=== PATIENT | male | born 1950 | race Two or more races ===

== ENCOUNTER 2023-03-23 08:14 | Emergency (ER) | payer OTHER ==
[~2023-03-23] VITALS: Ht 175.3 cm; Wt 79.4 kg
[2023-03-23 08:30] VITALS: BP_SYST 136; PULSE 91; RESP 20; TEMP 97; O2SAT 99
[2023-03-23 08:48] LABS: BASOPHILS # (AUTO) 0.1 K/uL (0.0-0.2); BASOPHILS % (AUTO) 0.9 % (0.0-2.0); EOSINOPHILS # (AUTO) 0.3 K/uL (0.0-0.4); EOSINOPHILS % (AUTO) 4.4 % (0.0-4.0); HEMATOCRIT 49.6 % (36-54); HEMOGLOBIN 16.3 g/dL (14.0-18.0); LYMPHOCYTES # (AUTO) 2.2 K/uL (1.0-5.5); MEAN CORPUSCULAR HEMOGLOBIN 28 pg (27-31); MEAN CORPUSCULAR HGB CONC 33 % (32-36); MEAN CORPUSCULAR VOLUME 86 fL (79.0-98.0); MONOCYTES # (AUTO) 0.5 K/uL (0.0-1.0); MONOCYTES % (AUTO) 6.7 % (1.7-9.3); NEUTROPHILS # (AUTO) 4.3 K/uL (1.8-7.7); PLATELET COUNT (AUTO) 246 K/uL (130-430); RED BLOOD CELL COUNT(AUTO) 5.78 MIL/uL (4.2-6.2); WHITE BLOOD COUNT (AUTO) 7.3 K/uL (4.8-10.8)
[2023-03-23 09:06] LABS: ANION GAP 9 (5-15); CALCIUM 8.3 mg/dL (8.4-11.0); CARBON DIOXIDE 28 mmol/L (23-29); CHLORIDE 101 mmol/L (98-107); CREATININE 1.03 mg/dL (0.55-1.30); GLUCOSE 122 mg/dL (74-106); POTASSIUM 4.1 mmol/L (3.5-5.1); SODIUM SERUM 138 mmol/L (136-145); UREA NITROGEN, BLOOD 21 mg/dL (8-21)
[2023-03-23 09:11] LABS: ALANINE AMINOTRANSFERASE 23 U/L (12-78); ASPARTATE AMINOTRANSFERASE 18 U/L (10-37); TOTAL BILIRUBIN 0.6 mg/dL (0.0-1.0); TOTAL PROTEIN, SERUM 8.1 g/dL (6.4-8.3)
[2023-03-23] MEDS ORDERED: KETOROLAC TROMETHAMINE 30 MG VIAL IM ONE (12:30)
[2023-03-23] MEDS ORDERED: lidoderm (12:57)
== END 2023-03-23 14:05 | disposition home or self-care (01) ==
LOC: SED 08:14
DX: S20.211A Contusion of right front wall of thorax, initial encounter (principal); Z79.899 Other long term (current) drug therapy; W19.XXXA Unspecified fall, initial encounter; Y93.89 Activity, other specified; Y92.89 Other specified places as the place of occurrence of the external cause; Y99.8 Other external cause status
CPT/HCPCS: 99285; 71260; 80053; 85025; 36415; 76376; J1885

== ENCOUNTER 2023-06-17 22:01 | Emergency (ER) | payer OTHER ==
[~2023-06-17] VITALS: Ht 175.3 cm; Wt 86.2 kg
[~2023-06-17 22:01] MED LIST: lidoderm
[2023-06-17 22:11] VITALS: BP_SYST 129; PULSE 76; RESP 18; TEMP 96.6; O2SAT 96
[2023-06-17] MEDS ORDERED: NS 1000 ML IV.SOLN IV ONE (22:15)
[2023-06-17 23:33] LABS: EOSINOPHILS # (AUTO) 0.1 K/uL (0.0-0.4); MEAN CORPUSCULAR VOLUME 84 fL (79.0-98.0); NEUTROPHILS # (AUTO) 5.3 K/uL (1.8-7.7)
[2023-06-17 23:40] LABS: BASOPHILS % (AUTO) 0.5 % (0.0-2.0); EOSINOPHILS % (AUTO) 1.6 % (0.0-4.0); HEMATOCRIT 48.9 % (36-54); HEMOGLOBIN 16.7 g/dL (14.0-18.0); LYMPHOCYTES # (AUTO) 1.2 K/uL (1.0-5.5); LYMPHOCYTES % (AUTO) 16.2 % (20.5-51.5); MEAN CORPUSCULAR HEMOGLOBIN 29 pg (27-31); MEAN CORPUSCULAR HGB CONC 34 % (32-36); MONOCYTES # (AUTO) 0.6 K/uL (0.0-1.0); MONOCYTES % (AUTO) 8.7 % (1.7-9.3); PLATELET COUNT (AUTO) 210 K/uL (130-430); RED BLOOD CELL COUNT(AUTO) 5.84 MIL/uL (4.2-6.2); RED CELL DISTRIBUTION WIDTH 13.9 % (9.0-15.0); WHITE BLOOD COUNT (AUTO) 7.3 K/uL (4.8-10.8)
[2023-06-18 00:08] LABS: ANION GAP 9 (5-15); CALCIUM 9.2 mg/dL (8.4-11.0); CARBON DIOXIDE 31 mmol/L (23-29); CHLORIDE 101 mmol/L (98-107); CREATININE 1.07 mg/dL (0.55-1.30); GLUCOSE 142 mg/dL (74-106); POTASSIUM 4.6 mmol/L (3.5-5.1); SODIUM SERUM 141 mmol/L (136-145); UREA NITROGEN, BLOOD 11 mg/dL (8-21)
[2023-06-18 00:09] LABS: PROTHROMBIN TIME 10.4 SECS (9.5-12.5)
[2023-06-18 00:15] LABS: ALANINE AMINOTRANSFERASE 27 U/L (12-78); ALBUMIN 3.9 g/dL (3.4-4.8); ASPARTATE AMINOTRANSFERASE 24 U/L (10-37); BILIRUBIN,DIRECT 0.2 mg/dL (0.0-0.3); TOTAL BILIRUBIN 0.7 mg/dL (0.0-1.0); TOTAL PROTEIN, SERUM 8.2 g/dL (6.4-8.3)
[2023-06-18 00:40] LABS: INFLUENZA TYPE A Negative (NEGATIVE)
[2023-06-18 00:52] LABS: INFLUENZA TYPE B POSITIVE (NEGATIVE)
[2023-06-18] MEDS ORDERED: KETOROLAC TROMETHAMINE 30 MG VIAL ONE (01:41)
[2023-06-18] MEDS ORDERED: NIRM1TAB PO (01:56)
[2023-06-18] MEDS ORDERED: OSEL75CA PO (01:56)
[2023-06-18 02:10] VITALS: BP_SYST 129; PULSE 76; RESP 18; TEMP 96.6; O2SAT 96
== END 2023-06-18 02:10 | disposition home or self-care (01) ==
LOC: SED 22:01
DX: U07.1 COVID-19 (principal); J10.1 Influenza due to other identified influenza virus with other respiratory manifestations; R50.9 Fever, unspecified; R05.9 Cough, unspecified; R11.10 Vomiting, unspecified; Z79.899 Other long term (current) drug therapy; Z20.822 Contact with and (suspected) exposure to COVID-19
CPT/HCPCS: 99285; 74176; 96360; 71045; 87426; 80076; 80048; 85025; 85610; 85730; 87040; 84484; 36415; 93005; 76376; 83605; 87804 ×2; J7030; J1885

== ENCOUNTER 2023-11-02 23:37 | Inpatient (IN) | payer OTHER ==
[~2023-11-02] VITALS: Ht 177.8 cm; Wt 90.7 kg
[~2023-11-02 23:37] MED LIST changes: +APIX2.5T PO; +APIX5TAB PO; +CLOT15CR5 TP; +ESCI-6 PO; +FLUT1BLS3 INH; +HYDR-3698 PO; +IBUP-1968 PO; +PRIM250T8 PO; +ROSU10TA29 PO; +THIA100T73 PO; +TRAZ-250 PO
[2023-11-02] MEDS ORDERED: NITROGLYCERIN 1 INCH (GM) OINT. ONE (23:46)
[2023-11-02 23:47] VITALS: BP_SYST 142; PULSE 113; RESP 26; TEMP 97.8; O2SAT 97
[2023-11-03] MEDS: MORPHINE 4 MG INJ. 4 MG/ML VIAL IVP ONE ×2 (00:13→01:52)
[2023-11-03] MEDS: dilTIAZem HCL IVP 5 MG/ML VIAL IVP ONE (00:13)
[2023-11-03] MEDS: ASPIRIN 325 MG TABLET PO ONE (00:14)
[2023-11-03] MEDS: NITROGLYCERIN 1 INCH (GM) OINT. TP ONE (00:22)
[2023-11-03 00:32] LABS: BASOPHILS % (AUTO) 0.6 % (0.0-2.0); EOSINOPHILS # (AUTO) 0.4 K/uL (0.0-0.4); EOSINOPHILS % (AUTO) 4.7 % (0.0-4.0); HEMATOCRIT 46.2 % (36-54); HEMOGLOBIN 15.4 g/dL (14.0-18.0); LYMPHOCYTES % (AUTO) 25.3 % (20.5-51.5); MEAN CORPUSCULAR HEMOGLOBIN 28 pg (27-31); MEAN CORPUSCULAR HGB CONC 33 % (32-36); MEAN CORPUSCULAR VOLUME 83 fL (79.0-98.0); MONOCYTES # (AUTO) 1.1 K/uL (0.0-1.0); MONOCYTES % (AUTO) 13.3 % (1.7-9.3); NEUTROPHILS # (AUTO) 4.5 K/uL (1.8-7.7); NEUTROPHILS % (AUTO) 56.1 % (40.0-70.0); PLATELET COUNT (AUTO) 316 K/uL (130-430); RED BLOOD CELL COUNT(AUTO) 5.58 MIL/uL (4.2-6.2); RED CELL DISTRIBUTION WIDTH 14.4 % (9.0-15.0); WHITE BLOOD COUNT (AUTO) 8.1 K/uL (4.8-10.8)
[2023-11-03 00:35] LABS: ALANINE AMINOTRANSFERASE 17 U/L (12-78); ALBUMIN 3.4 g/dL (3.4-4.8); ANION GAP 9 (5-15); ASPARTATE AMINOTRANSFERASE 13 U/L (10-37); BILIRUBIN,DIRECT 0.1 mg/dL (0.0-0.3); CALCIUM 8.5 mg/dL (8.4-11.0); CARBON DIOXIDE 28 mmol/L (23-29); CHLORIDE 104 mmol/L (98-107); CREATININE 1.11 mg/dL (0.55-1.30); GLUCOSE 112 mg/dL (74-106); POTASSIUM 4.2 mmol/L (3.5-5.1); SODIUM SERUM 141 mmol/L (136-145); TOTAL BILIRUBIN 0.1 mg/dL (0.0-1.0); UREA NITROGEN, BLOOD 9 mg/dL (8-21)
[2023-11-03] MEDS ORDERED: APIX5TAB PO ×2 (04:11)
[2023-11-03] MEDS ORDERED: OXYB-31 PO (04:11)
[2023-11-03] MEDS ORDERED: FLUT1BLS11 INH (04:11)
[2023-11-03] MEDS ORDERED: PRIM250T32 PO (04:11)
[2023-11-03] MEDS ORDERED: AMIO200T68 PO (04:11)
[2023-11-03] MEDS ORDERED: TRAZ-250 PO (04:11)
[2023-11-03] MEDS ORDERED: ROSU10TA2 PO (04:11)
[2023-11-03] MEDS ORDERED: LEVA15HF5 INH (04:11)
[2023-11-03] MEDS ORDERED: PROP40SO PO (04:11)
[2023-11-03] MEDS ORDERED: OXYB10TA30 PO (07:15)
[2023-11-03] MEDS ORDERED: PROP80CA58 PO (07:16)
[2023-11-03] MEDS ORDERED: CARVEDILOL 3.125 MG TABLET (COREG) PO SCH (09:00)
[2023-11-03] MEDS ORDERED: APIXABAN 2.5 MG TABLET PO SCH (09:00)
[2023-11-03] MEDS ORDERED: ONDANSETRON HCL 4 MG/2 ML VIAL ONE (09:10)
[2023-11-03] MEDS: CARVEDILOL 3.125 MG TABLET (COREG) PO SCH (09:12)
[2023-11-03] MEDS: APIXABAN 2.5 MG TABLET PO SCH (09:13)
[2023-11-03 09:40] VITALS: BP_SYST 103; PULSE 68; RESP 16; TEMP 96.9; O2SAT 96
[2023-11-03 10:16] VITALS: BP_SYST 103; PULSE 68; RESP 18; TEMP 96.9; O2SAT 98
[2023-11-03] MEDS: ONDANSETRON HCL 4 MG/2 ML VIAL IVP ONE (12:20)
[2023-11-03] MEDS ORDERED: levalbuterol HCL 0.63 MG/3 ML VIAL.NEB INH PRN (13:30)
[2023-11-03] MEDS ORDERED: traZODone HCL 50 MG TABLET (DESYREL) PO PRN (13:30)
[2023-11-03 14:20] VITALS: PULSE 68; O2SAT 98
[2023-11-03] MEDS: PROPRANOLOL HCL 10 MG TABLET (INDERAL) PO ONE (15:52)
[2023-11-03] MEDS: AMIODARONE HCL 200 MG TABLET PO ONE (15:52)
[2023-11-03 16:01] VITALS: BP_SYST 111; PULSE 72; RESP 16; TEMP 98.5; O2SAT 95
[2023-11-03 19:59] VITALS: O2SAT 94
[2023-11-03 20:00] VITALS: BP_SYST 138; PULSE 70; RESP 16; TEMP 99.2; O2SAT 99
[2023-11-03] MEDS: ALBUTEROL SULFATE 0.083% 2.5 MG/3 ML VIAL.NEB INH SCH (20:05)
[2023-11-03] MEDS: BUDESONIDE 0.5 MG/2 ML AMPUL.NEB INH SCH (20:06)
[2023-11-03] MEDS ORDERED: NON-FORMULARY MEDICATION (Apixaban (Eliquis) 5 MG) PO SCH (21:00)
[2023-11-03] MEDS ORDERED: AMIODARONE HCL 200 MG TABLET PO SCH ×2 (21:00)
[2023-11-03] MEDS: PRIMIDONE 250 MG TABLET PO SCH (21:47)
[2023-11-03] MEDS: PROPRANOLOL HCL 10 MG TABLET (INDERAL) PO SCH (21:47)
[2023-11-03] MEDS: oxyBUTYnin chloride 5 MG TABLET PO SCH (21:47)
[2023-11-03] MEDS: traMADol HCL HCL 50 MG TABLET (ULTRAM) PO PRN (22:27)
[2023-11-04] VITALS (7 sets, daily range): BP systolic 111–144; PULSE 68–99; RESP 17–20; TEMP 97.5–98.7; O2SAT 94–97
[2023-11-04 04:43] LABS: BASOPHILS # (AUTO) 0.1 K/uL (0.0-0.2); BASOPHILS % (AUTO) 0.9 % (0.0-2.0); EOSINOPHILS # (AUTO) 0.3 K/uL (0.0-0.4); EOSINOPHILS % (AUTO) 3.6 % (0.0-4.0); HEMATOCRIT 42.4 % (36-54); HEMOGLOBIN 14.4 g/dL (14.0-18.0); LYMPHOCYTES # (AUTO) 2.4 K/uL (1.0-5.5); LYMPHOCYTES % (AUTO) 25.6 % (20.5-51.5); MEAN CORPUSCULAR HEMOGLOBIN 28 pg (27-31); MEAN CORPUSCULAR HGB CONC 34 % (32-36); MEAN CORPUSCULAR VOLUME 83 fL (79.0-98.0); MONOCYTES # (AUTO) 1.4 K/uL (0.0-1.0); MONOCYTES % (AUTO) 15.1 % (1.7-9.3); NEUTROPHILS % (AUTO) 54.8 % (40.0-70.0); PLATELET COUNT (AUTO) 335 K/uL (130-430); RED BLOOD CELL COUNT(AUTO) 5.09 MIL/uL (4.2-6.2); RED CELL DISTRIBUTION WIDTH 14.5 % (9.0-15.0); WHITE BLOOD COUNT (AUTO) 9.2 K/uL (4.8-10.8)
[2023-11-04 05:33] LABS: ANION GAP 4 (5-15); CALCIUM 8.3 mg/dL (8.4-11.0); CARBON DIOXIDE 30 mmol/L (23-29); CHLORIDE 101 mmol/L (98-107); CREATININE 1.03 mg/dL (0.55-1.30); FREE T4 (FREE THYROXINE) 0.7 ng/dl (0.8-1.5); GLUCOSE 90 mg/dL (74-106); SODIUM SERUM 135 mmol/L (136-145); THYROID STIMULATING HORMONE 8.91 uIu/mL (0.36-3.74); UREA NITROGEN, BLOOD 8 mg/dL (8-21)
[2023-11-04] MEDS: MORPHINE 2 MG/ML INJ. SYRINGE IVP ONE (05:42)
[2023-11-04] MEDS: ATORVASTATIN 20 MG TABLET PO SCH (08:05)
[2023-11-04] MEDS: CITALOPRAM HYDROBROMIDE 20 MG TABLET PO SCH (08:06)
[2023-11-04] MEDS: AMIODARONE HCL 200 MG TABLET PO SCH (08:08)
[2023-11-04] MEDS: THIAMINE HCL 100 MG TABLET PO SCH (08:08)
[2023-11-04] MEDS ORDERED: PROPRANOLOL HCL 80 MG (INDERAL LA 80MG) PO SCH (09:00)
[2023-11-04] MEDS ORDERED: MELO-89 PO (11:00)
[2023-11-04] MEDS: MELOXICAM 7.5 MG TABLET PO ONE (11:24)
[2023-11-04 12:01] LABS: BASOPHILS # (AUTO) 0.1 K/uL (0.0-0.2); BASOPHILS % (AUTO) 0.6 % (0.0-2.0); EOSINOPHILS # (AUTO) 0.3 K/uL (0.0-0.4); EOSINOPHILS % (AUTO) 2.6 % (0.0-4.0); HEMATOCRIT 43.9 % (36-54); HEMOGLOBIN 14.7 g/dL (14.0-18.0); LYMPHOCYTES # (AUTO) 1.8 K/uL (1.0-5.5); LYMPHOCYTES % (AUTO) 15.6 % (20.5-51.5); MEAN CORPUSCULAR HEMOGLOBIN 28 pg (27-31); MEAN CORPUSCULAR HGB CONC 34 % (32-36); MEAN CORPUSCULAR VOLUME 83 fL (79.0-98.0); MONOCYTES # (AUTO) 1.7 K/uL (0.0-1.0); NEUTROPHILS # (AUTO) 7.4 K/uL (1.8-7.7); NEUTROPHILS % (AUTO) 66.2 % (40.0-70.0); PLATELET COUNT (AUTO) 330 K/uL (130-430); RED BLOOD CELL COUNT(AUTO) 5.29 MIL/uL (4.2-6.2); RED CELL DISTRIBUTION WIDTH 14.5 % (9.0-15.0); WHITE BLOOD COUNT (AUTO) 11.2 K/uL (4.8-10.8)
[2023-11-05] MEDS ORDERED: MELOXICAM 7.5 MG TABLET PO SCH (09:00)
== END 2023-11-04 14:10 | disposition home health service (06) | DRG 310 ==
LOC: SED 23:37 → STU 11-03 02:21 → SMU 11-03 09:40 → STU 11-03 09:41
PROVIDERS: ADMIT Specialist; ATTEND Specialist
DX: I48.0 Paroxysmal atrial fibrillation (principal); I10 Essential (primary) hypertension; E78.5 Hyperlipidemia, unspecified; E03.9 Hypothyroidism, unspecified; Z79.899 Other long term (current) drug therapy
CPT/HCPCS: 36415; 71045; 73030; 80048; 80076; 84439; 84443; 84484; 85025; 87081; 93306; 94070; 94640; 94760; 99291; G0378; J2270; J2405; J3490; J7626